=== PATIENT | female | born 1950 | race Caucasian/White ===

== ENCOUNTER → 2019-10-01 | Outpatient (CLI) | payer BC | LOC: HYPER 10:36 | DX: S81.811A Laceration without foreign body, right lower leg, initial encounter (principal); L08.89 Other specified local infections of the skin and subcutaneous tissue; I87.2 Venous insufficiency (chronic) (peripheral); B35.1 Tinea unguium; E03.9 Hypothyroidism, unspecified; E78.5 Hyperlipidemia, unspecified; I73.9 Peripheral vascular disease, unspecified; I10 Essential (primary) hypertension; M81.0 Age-related osteoporosis without current pathological fracture; M19.90 Unspecified osteoarthritis, unspecified site; E66.3 Overweight; G47.62 Sleep related leg cramps; Z68.27 Body mass index [BMI] 27.0-27.9, adult; X58.XXXA Exposure to other specified factors, initial encounter; Y93.89 Activity, other specified; Y92.89 Other specified places as the place of occurrence of the external cause; Y99.8 Other external cause status ==

== ENCOUNTER → 2019-10-11 | Outpatient (CLI) | payer BC, OTHER | LOC: ULTRA 09:30 | DX: L97.919 Non-pressure chronic ulcer of unspecified part of right lower leg with unspecified severity (principal) ==

== ENCOUNTER → 2019-10-15 | Outpatient (CLI) | payer BC, OTHER | LOC: HYPER 07:41 | DX: S81.811D Laceration without foreign body, right lower leg, subsequent encounter (principal); I87.2 Venous insufficiency (chronic) (peripheral); L08.89 Other specified local infections of the skin and subcutaneous tissue; B35.1 Tinea unguium; E03.9 Hypothyroidism, unspecified; E78.5 Hyperlipidemia, unspecified; M81.0 Age-related osteoporosis without current pathological fracture; I12.9 Hypertensive chronic kidney disease with stage 1 through stage 4 chronic kidney disease, or unspecified chronic kidney disease; N18.9 Chronic kidney disease, unspecified; G47.62 Sleep related leg cramps; E66.3 Overweight; Z68.27 Body mass index [BMI] 27.0-27.9, adult; W06.XXXD Fall from bed, subsequent encounter ==

== ENCOUNTER → 2019-10-25 | Outpatient (CLI) | payer BC, OTHER | LOC: ULTRA 12:08 | DX: M79.604 Pain in right leg (principal); M79.605 Pain in left leg; R22.43 Localized swelling, mass and lump, lower limb, bilateral ==

== ENCOUNTER → 2019-10-29 | Outpatient (CLI) | payer BC, OTHER | LOC: HYPER 08:41 | DX: S81.811D Laceration without foreign body, right lower leg, subsequent encounter (principal); I87.2 Venous insufficiency (chronic) (peripheral); B35.1 Tinea unguium; L08.89 Other specified local infections of the skin and subcutaneous tissue; G47.62 Sleep related leg cramps; E66.3 Overweight; E03.9 Hypothyroidism, unspecified; E78.5 Hyperlipidemia, unspecified; M81.0 Age-related osteoporosis without current pathological fracture; M19.90 Unspecified osteoarthritis, unspecified site; I12.9 Hypertensive chronic kidney disease with stage 1 through stage 4 chronic kidney disease, or unspecified chronic kidney disease; N18.9 Chronic kidney disease, unspecified; Z68.27 Body mass index [BMI] 27.0-27.9, adult; W06.XXXD Fall from bed, subsequent encounter ==

== ENCOUNTER → 2020-01-14 | Outpatient (CLI) | payer BC | LOC: HYPER 14:12 | DX: S81.801D Unspecified open wound, right lower leg, subsequent encounter (principal); I87.2 Venous insufficiency (chronic) (peripheral); I10 Essential (primary) hypertension; E78.5 Hyperlipidemia, unspecified; E03.9 Hypothyroidism, unspecified; M81.0 Age-related osteoporosis without current pathological fracture; M19.90 Unspecified osteoarthritis, unspecified site; W17.89XD Other fall from one level to another, subsequent encounter ==

== ENCOUNTER → 2020-09-25 | Outpatient (CLI) | payer BC | LOC: LAB 09:00 | PROVIDERS: ATTEND Anesthesiology | DX: Z01.812 Encounter for preprocedural laboratory examination (principal); Z20.822 Contact with and (suspected) exposure to COVID-19 ==